=== PATIENT | female | born 1940 | race Caucasian/White ===

== ENCOUNTER 2018-03-07 17:44 | Inpatient (IN) | payer OTHER ==
[2018-03-07 17:50] VITALS: BMI 27.6
--- NOTE | 2018-03-07 17:54 | PDOC ---
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 Patient states both started this morning when she woke up and have continued throughout the day. Emesis is brown. Pain is R sided, sharp, constant and patient does not identify any triggering or relieving factors. No fever/chills. Not tolerating PO intake. Last bowel movement was 4 days previous, patient normally goes every other day. The patient denies chest pain, shortness of breath, cough, sore throat, numbness /tingling. NKDA Surgical: Watchman (January 2018), Appendectomy (childhood), Hysterectomy Social: former 3 ppd smoker, quit 30 years previous; denies other toxic habits Son: Stewart (cell); [phone] (home) As per EMR patient has never been evaluated in our ED on prior occasion. Past History - Past Medical History Allergies/Adverse Reactions: Allergies Allergy/AdvReac Type Severity Reaction Status Date / Time No Known Allergies Allergy Verified 03/07/18 18:16 Home Medications: Ambulatory Orders Amlodipine Besylate [Norvasc -] 10 mg PO BID 03/07/18 Apixaban [Eliquis] 5 mg PO DAILY 03/07/18 Aspirin [ASA -] 81 mg PO DAILY 03/07/18 Atorvastatin Ca [Lipitor] 80 mg PO HS 03/07/18 Digoxin [Lanoxin -] 0.125 mg PO DAILY 03/07/18 Insulin (Levemir) [Levemir Vial] 15 unit SQ DAILY 03/07/18 Metformin HCl [Glucophage] 1,000 mg PO BID 03/07/18 Pantoprazole Sodium [Protonix] 40 mg PO DAILY 03/07/18 Anemia: Yes Cardiac Disorders: Yes (AFIB) CVA: Yes COPD: No Diabetes: Yes HTN: Yes Hypercholesterolemia: Yes - Surgical History Cardiac Surgery: Yes (WATCHMEN DEVICE) - Suicide/Smoking/Psychosocial Hx Smoking History: Former smoker Have you smoked in the past 12 months: No If you are a former smoker, when did you quit?: 26YRS Information on smoking cessation initiated: No Hx Alcohol Use: No Drug/Substance Use Hx: No Review of Systems - Review of Systems Constitutional: No: Chills, Fever HEENTM: No: Recent change in vision Respiratory: No: Cough, Shortness of Breath Cardiac (ROS): No: Chest Pain, Lightheadedness, Palpitations, Syncope ABD/GI: Yes: Constipated, Vomiting, Abdominal cramping. No: Diarrhea : No: Burning, Dysuria *Physical Exam - Vital Signs Last Vital Signs Temp Pulse Resp BP Pulse Ox 0/0 L 03/07/18 17:45 - Physical Exam General Appearance: Yes: Nourished, Thin HEENT: positive: Normal Voice, Hearing Grossly Normal Neck: positive: Trachea midline, Supple Respiratory/Chest: positive: Lungs Clear, Normal Breath Sounds Cardiovascular: positive: S1, S2, Irregularly Irregular Vascular Pulses: Dorsalis-Pedis (R): 2+, Doralis-Pedis (L): 2+ Gastrointestinal/Abdominal: positive: Normal Bowel Sounds, Soft, Guarding. negative: Hernia, Mass Musculoskeletal: positive: CVA Tenderness (R). negative: CVA Tenderness (L) Extremity: positive: Normal Capillary Refill, Normal Inspection Integumentary: positive: Normal Color, Dry, Warm Moderate Sedation - Procedure Monitoring Vital Signs: Procedure Monitoring Vital Signs Temperature Pulse Rate Respiratory Rate Blood Pressure 0/0 L 03/07/18 17:45 O2 Sat by Pulse Oximetry (%) ED Treatment Course - LABORATORY CBC & Chemistry Diagram: 03/07/18 18:38 03/07/18 18:38 Medical Decision Making - Medical Decision Making 03/07/18 18:44 77 year old non-toxic appearing female presents with abdominal pain, vomiting. VS significant for tachycardia (HR 131), R sided CVA tenderness, equivocal Capellan's sign w/peritoneal (guarding) on PE. Frontal diagnosis: gastroenteritis , cholecystitis, bilary colic, colitis, also consider abdominal pain as anginal equivalent though less likely. Will obtain bedside U/S, belly labs. IV Tylenol and hydration. ekg monitor. Reassess. 03/07/18 18:48 EKG shows AFib with RVR. Patient did not take her Digoxin today. Will give home dose Digoxin and repeat EKG 03/07/18 18:48 Bedside U/S shows cholelithiasis, shadowing. Formal U/S pending. 03/07/18 19:16 Leukocytosis (16.8) - will start Zosyn Hb 9 - patient states she is taking Fe pills. Patient counseled on plan of care. Patient signed out to Dr. Ingram. *DC/Admit/Observation/Transfer Diagnosis at time of Disposition: Abdominal pain - Discharge Dispostion Condition at time of disposition: Stable - Referrals - Patient Instructions - Post Discharge Activity
--- NOTE | 2018-03-07 17:55 | PDOC ---
Attending Attestation - Resident Resident Name: Davina Ochoa - ED Attending Attestation I have performed the following: I have examined & evaluated the patient, The case was reviewed & discussed with the resident, I agree w/resident's findings & plan, Exceptions are as noted
[2018-03-07] MEDS ORDERED: DIGOXIN 0.125 MG TABLET (FP) PO ONE (18:21)
[2018-03-07] MEDS ORDERED: SODIUM CHLORIDE 0.9% 500 ML INFUS.BAG IV ONE (18:23)
[2018-03-07] MEDS ORDERED: ONDANSETRON 4 MG/2 ML VIAL IVPUSH ONE (18:24)
[2018-03-07] MEDS ORDERED: ACETAMINOPHEN 1000 MG/100 ML VIAL (NON FORMULARY) IVPB ONE (18:24)
[2018-03-07] MEDS ORDERED: ONDANSETRON 4 MG/2 ML VIAL ONE (18:39)
[2018-03-07] MEDS ORDERED: ACETAMINOPHEN INJECTION 100 ML IVPB ONE (18:39)
[2018-03-07 18:52] LABS: HEMATOCRIT 32.1 % (32.4-45.2); HEMOGLOBIN 9.9 GM/dl (10.7-15.3); MCH 22.5 pg (25.7-33.7); MCHC 30.7 g/dl (32.0-36.0); MEAN CELL VOLUME 73.3 fl (80-96); MEAN PLT VOLUME 8.7 fl (7.5-11.1); PLATELET COUNT 478 K/MM3 (134-434); RBC 4.38 M/mm3 (3.60-5.2); RDW 18.7 % (11.6-15.6); WHITE BLOOD COUNT 16.8 K/mm3 (4.0-10.8)
[2018-03-07 19:08] LABS: ALBUMIN 3.6 g/dl (3.5-5.0); ALK PHOS 82 U/L (32-92); ANION GAP 11 MMOL/L (8-16); BILIRUBIN,TOTAL 0.5 mg/dl (0.2-1.0); BLOOD UREA NITROGEN 21 mg/dl (7-18); CALCIUM 9.2 mg/dl (8.4-10.2); CHLORIDE 99 mmol/L (98-107); CO2 24 mmol/L (22-28); CREATININE 1.3 mg/dl (0.6-1.3); GLUCOSE,RANDOM 248 mg/dl (74-106); MAGNESIUM 1.6 mg/dL (1.8-2.4); POTASSIUM 4.3 mmol/L (3.5-5.1); SGOT/AST 16 U/L (10-42); SGPT/ALT 9 U/L (10-40); SODIUM 134 mmol/L (136-145); TOT PROT 7.5 g/dl (6.4-8.3)
[2018-03-07] MEDS ORDERED: PIPERACILLIN/TAZOB 4.5 GM 4.5 GM in DEXTROSE 5%-WATER 100 ML IVPB ONE (19:14)
[2018-03-07] MEDS ORDERED: DIGOXIN 0.125 MG TABLET (FP) ONE (19:21)
[2018-03-07] MEDS ORDERED: PIPERACILLIN/TAZOBACTAM 4.5 GM VIAL IVPB ONE (19:21)
[2018-03-07 19:22] LABS: ANISOCYTOSIS 2+
[2018-03-07 19:38] LABS: LIPASE 153 U/L (73-393)
--- NOTE | 2018-03-07 19:52 | PDOC ---
*Physical Exam - Vital Signs Last Vital Signs Temp Pulse Resp BP Pulse Ox 98.1 F 126 H 17 172/89 H 97 03/07/18 17:45 03/07/18 19:34 03/07/18 19:34 03/07/18 19:34 03/07/18 19:34 ED Treatment Course - LABORATORY CBC & Chemistry Diagram: 03/07/18 18:38 03/07/18 18:38 - ADDITIONAL ORDERS Additional order review: Laboratory Results 03/07/18 03/07/18 03/07/18 18:38 18:38 18:25 Sodium 134 L Potassium 4.3 Chloride 99 Carbon Dioxide 24 Anion Gap 11 BUN 21 H Creatinine 1.3 Creat Clearance w eGFR 39.72 Random Glucose 248 H Lactic Acid 1.4 Calcium 9.2 Magnesium 1.6 L Total Bilirubin 0.5 AST 16 ALT 9 L Alkaline Phosphatase 82 Creatine Kinase 50 Troponin I Total Protein 7.5 Albumin 3.6 Lipase 153 03/07/18 18:25 Sodium Potassium Chloride Carbon Dioxide Anion Gap BUN Creatinine Creat Clearance w eGFR Random Glucose Lactic Acid Calcium Magnesium Total Bilirubin AST ALT Alkaline Phosphatase Creatine Kinase Troponin I < 0.03 Total Protein Albumin Lipase 03/07/18 18:38 RBC 4.38 MCV 73.3 L MCHC 30.7 L RDW 18.7 H MPV 8.7 Neutrophils % No Result Required. Lymphocytes % No Result Required. - Medications Given in the ED: ED Medications Discontinued Medications Generic Name Dose Route Start Last Admin Trade Name Freq PRN Reason Stop Dose Admin Acetaminophen 1,000 mg 03/07/18 18:24 03/07/18 18:44 Ofirmev Injection - IVPB 03/07/18 18:25 1,000 mg ONCE ONE Administration Digoxin 0.125 mg 03/07/18 18:21 03/07/18 19:20 Lanoxin - PO 03/07/18 18:22 0.125 mg ONCE ONE Administration Piperacillin Sod/Tazobactam 100 mls @ 200 mls/hr 03/07/18 19:14 03/07/18 19: 30 Sod 4.5 gm/ Dextrose IVPB 03/07/18 19:43 200 mls/hr ONCE ONE Administration Protocol Ondansetron HCl 4 mg 03/07/18 18:24 03/07/18 18:44 Zofran Injection IVPUSH 01/14/19 18:25 4 mg ONCE ONE Administration Sodium Chloride 1,000 ml 03/07/18 18:23 03/07/18 18:44 Normal Saline - IV 03/07/18 18:24 1,000 ml ONCE ONE Administration Progress Note - Progress Note Progress Note: Care of this patient was transferred to vt from Dr. Sales at 1900 hrs.. Patient came in complaining of right upper quadrant pain with bilious vomiting. Patient has an elevated white count of 16.9 with a left shift Patient's chemistries are still pending However Dr. Suh did a bedside ultrasound and didn't see a large stone in the neck of the gallbladder. business systems technician has been called to do a formal ultrasound Patient receiving Zosyn. Patient will require an inpatient admission 23:00 Patient's CAT scan showed some hydroureter but no hydro-nephrosis or obstructive uropathy. It also showed some gallstones but no evidence of acute cholecystitis. Discussed admission with Dr. Nunez was accepted patient for admission *DC/Admit/Observation/Transfer Diagnosis at time of Disposition: Hydroureter Abdominal pain Qualifiers: Abdominal location: right upper quadrant Qualified Code(s): R10.11 - Right upper quadrant pain Cholelithiasis Qualifiers: Cholelithiasis location: gallbladder Cholecystitis presence: without cholecystitis Biliary obstruction: without biliary obstruction Qualified Code(s) : K80.20 - Calculus of gallbladder without cholecystitis without obstruction Leukocytosis Qualifiers: Leukocytosis type: unspecified Qualified Code(s): D72.829 - Elevated white blood cell count, unspecified - Discharge Dispostion Condition at time of disposition: Stable Decision to Admit order: Yes - Referrals - Patient Instructions - Post Discharge Activity
[2018-03-07 20:10] LABS: URINE APPEARANCE Clear; URINE BILIRUBIN Negative (NEGATIVE); URINE COLOR Yellow; URINE GLUCOSE (UA) Trace (NEGATIVE); URINE KETONE Trace (NEGATIVE); URINE LEUK ESTERASE Negative (NEGATIVE); URINE NITRITE Negative (NEGATIVE); URINE PROTEIN 2+ (NEGATIVE); URINE UROBILINOGEN 0.2 (0.2-1.0)
[2018-03-07 20:19] LABS: INR 1.38 (0.82-1.09); PROTHROMBIN TIME (PATIENT) 15.4 SEC (10.2-13.0)
[2018-03-07 20:21] LABS: URINE RBC 20-40 /hpf (0-3)
[2018-03-07 20:22] LABS: EPI CELLS 1+ /HPF; URINE BACTERIA 1+ /hpf (NEGATIVE)
--- NOTE | 2018-03-07 23:39 | HP ---
CHIEF COMPLAINT: right upper quadrant pain PCP: HISTORY OF PRESENT ILLNESS: 77 year old woman c/o right upper quadrant pain, dull, which radiated to her right back, which started on 03/06 in the morning, started suddenly, associated with nausea and several episodes of brown emesis. Pain was worsened with eating and she did not have much of an appetite. Patient denied any fevers, chills, dysuria, shortness of breath or chest pain. She feels much better now than this morning. 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), NIDDM PAST SURGICAL HISTORY: Watchman (January 2018), Appendectomy (childhood), Hysterectomy Social History: Smoking: former 3 ppd smoker, quit 25 Alcohol: no Drugs: no Family History: father with DM Allergies No Known Allergies Allergy (Verified 03/07/18 18:16) HOME MEDICATIONS: Home Medications Medication Instructions Recorded Amlodipine Besylate [Norvasc -] 10 mg PO BID 03/07/18 Apixaban [Eliquis] 5 mg PO DAILY 03/07/18 Aspirin [ASA -] 81 mg PO DAILY 03/07/18 Atorvastatin Ca [Lipitor] 80 mg PO HS 03/07/18 Digoxin [Lanoxin -] 0.125 mg PO DAILY 03/07/18 Insulin (Levemir) [Levemir Vial] 15 unit SQ DAILY 03/07/18 Metformin HCl [Glucophage] 1,000 mg PO BID 03/07/18 Pantoprazole Sodium [Protonix] 40 mg PO DAILY 03/07/18 REVIEW OF SYSTEMS CONSTITUTIONAL: Absent: fever, chills, diaphoresis, generalized weakness, weight change present- malaise, loss of appetite, HEENT: Absent: rhinorrhea, nasal congestion, throat pain, throat swelling, difficulty swallowing, mouth swelling, ear pain, eye pain, visual changes CARDIOVASCULAR: Absent: chest pain, syncope, palpitations, irregular heart rate, lightheadedness , peripheral edema RESPIRATORY: Absent: cough, shortness of breath, dyspnea with exertion, orthopnea, wheezing, stridor, hemoptysis GASTROINTESTINAL: Absent: abdominal distension, diarrhea, , melena, hematochezia present- abdominal pain, nausea, vomiting, constipation GENITOURINARY: Absent: dysuria, frequency, urgency, hesitancy, hematuria, flank pain, genital pain MUSCULOSKELETAL: Absent: myalgia, arthralgia, joint swelling, back pain, neck pain SKIN: Absent: rash, itching, pallor HEMATOLOGIC/IMMUNOLOGIC: Absent: easy bleeding, easy bruising, lymphadenopathy, frequent infections ENDOCRINE: Absent: unexplained weight gain, unexplained weight loss, heat intolerance, cold intolerance NEUROLOGIC: Absent: headache, focal weakness or paresthesias, dizziness, unsteady gait, seizure, mental status changes, bladder or bowel incontinence PSYCHIATRIC: Absent: anxiety, depression, suicidal or homicidal ideation, hallucinations. PHYSICAL EXAMINATION Vital Signs - 24 hr 03/07/18 03/07/18 03/07/18 17:45 18:48 19:34 Temperature 98.1 F Pulse Rate 131 H Pulse Rate [ 136 H 126 H Apical] Respiratory 18 20 17 Rate Blood Pressure 150/95 Blood Pressure 172/89 H 169/82 [Right Arm] O2 Sat by Pulse 100 93 L 97 Oximetry (%) 03/07/18 03/07/18 03/07/18 20:15 20:30 22:30 Temperature 98.2 F Pulse Rate Pulse Rate [ 113 H 106 H 90 Apical] Respiratory 17 16 16 Rate Blood Pressure Blood Pressure 149/86 142/76 146/81 [Right Arm] O2 Sat by Pulse 96 98 95 Oximetry (%) GENERAL: Awake, alert, and fully oriented, in no acute distress. HEAD: Normal with no signs of trauma. EYES: Pupils equal, round and reactive to light, extraocular movements intact, sclera anicteric, conjunctiva clear. No lid lag. EARS, NOSE, THROAT: Ears normal, nares patent, oropharynx clear without exudates. Moist mucous membranes. NECK: Normal range of motion, supple without lymphadenopathy, JVD, or masses. LUNGS: Breath sounds equal, clear to auscultation bilaterally. No wheezes, and no crackles. No accessory muscle use. HEART: irregularly irregular HR, no murmurs ABDOMEN: BS+. right upper quadrant tenderness MUSCULOSKELETAL: Normal range of motion at all joints. No bony deformities or tenderness. No CVA tenderness. UPPER EXTREMITIES: 2+ pulses, warm, well-perfused. No cyanosis. No clubbing. No peripheral edema. LOWER EXTREMITIES: 2+ pulses, warm, well-perfused. No calf tenderness. No peripheral edema. NEUROLOGICAL: Cranial nerves II-XII intact. Normal speech. Normal gait. PSYCHIATRIC: Cooperative. Good eye contact. Appropriate mood and affect. SKIN: Warm, dry, normal turgor, no rashes or lesions noted, normal capillary refill. Laboratory Results - last 24 hr 03/07/18 03/07/18 03/07/18 18:25 18:25 18:27 WBC RBC Hgb Hct MCV MCH MCHC RDW Plt Count MPV Absolute Neuts (auto) Neutrophils % Neutrophils % (Manual) Lymphocytes % Lymphocytes % (Manual) Monocytes % (Manual) Eosinophils % (Manual) Hypochromia Anisocytosis Microcytosis PT with INR 15.4 H INR 1.38 H Sodium Potassium Chloride Carbon Dioxide Anion Gap BUN Creatinine Creat Clearance w eGFR Random Glucose Lactic Acid Calcium Magnesium Total Bilirubin AST ALT Alkaline Phosphatase Creatine Kinase 50 Troponin I < 0.03 Total Protein Albumin Lipase Urine Color Urine Appearance Urine pH Ur Specific [place] Urine Protein Urine Glucose (UA) Urine Ketones Urine Blood Urine Nitrite Urine Bilirubin Urine Urobilinogen Ur Leukocyte Esterase Urine RBC Urine WBC Ur Epithelial Cells Urine Bacteria 03/07/18 03/07/18 03/07/18 18:38 18:38 18:38 WBC 16.8 H RBC 4.38 Hgb 9.9 L Hct 32.1 L MCV 73.3 L MCH 22.5 L MCHC 30.7 L RDW 18.7 H Plt Count 478 H MPV 8.7 Absolute Neuts (auto) 15.7 Neutrophils % No Result Required. Neutrophils % (Manual) 92.0 H* Lymphocytes % No Result Required. Lymphocytes % (Manual) 4.0 L Monocytes % (Manual) 3 L Eosinophils % (Manual) 1.0 Hypochromia 2+ Anisocytosis 2+ Microcytosis 1+ PT with INR INR Sodium 134 L Potassium 4.3 Chloride 99 Carbon Dioxide 24 Anion Gap 11 BUN 21 H Creatinine 1.3 Creat Clearance w eGFR 39.72 Random Glucose 248 H Lactic Acid 1.4 Calcium 9.2 Magnesium 1.6 L Total Bilirubin 0.5 AST 16 ALT 9 L Alkaline Phosphatase 82 Creatine Kinase Troponin I Total Protein 7.5 Albumin 3.6 Lipase 153 Urine Color Urine Appearance Urine pH Ur Specific [place] Urine Protein Urine Glucose (UA) Urine Ketones Urine Blood Urine Nitrite Urine Bilirubin Urine Urobilinogen Ur Leukocyte Esterase Urine RBC Urine WBC Ur Epithelial Cells Urine Bacteria 03/07/18 19:50 WBC RBC Hgb Hct MCV MCH MCHC RDW Plt Count MPV Absolute Neuts (auto) Neutrophils % Neutrophils % (Manual) Lymphocytes % Lymphocytes % (Manual) Monocytes % (Manual) Eosinophils % (Manual) Hypochromia Anisocytosis Microcytosis PT with INR INR Sodium Potassium Chloride Carbon Dioxide Anion Gap BUN Creatinine Creat Clearance w eGFR Random Glucose Lactic Acid Calcium Magnesium Total Bilirubin AST ALT Alkaline Phosphatase Creatine Kinase Troponin I Total Protein Albumin Lipase Urine Color Yellow Urine Appearance Clear Urine pH 5.0 Ur Specific [place] 1.025 Urine Protein 2+ H Urine Glucose (UA) Trace Urine Ketones Trace Urine Blood 3+ H Urine Nitrite Negative Urine Bilirubin Negative Urine Urobilinogen 0.2 Ur Leukocyte Esterase Negative Urine RBC 20-40 Urine WBC 2-5 Ur Epithelial Cells 1+ Urine Bacteria 1+ imaging reviewed ASSESSMENT/PLAN: #Sepsis with leukocytosis with neutrophil predominance, tachycardia likely from hepatobiliary source- cholecystitis? choledocholiathiasis? Differential diagnosis also includes right sided pyelonephritis complicated by nephrolithiasis in, right sided hydroureternephrosis seen on imaging, possible right kidney stone obstruction. -admit to med/surg -IV fluid hydration -c/w zosyn -consult surgery, , GI, ID -zofran prn for nausea or vomiting -morphine prn if pain -ordered MRCP -esr, crp -blood cultures, urine cultures -ppi #Afib -c/w home dose digoxin -send dig level in am -pt took home dose eliquis around [place] so hold off heparin drip for now #DM -insulin sliding scale #DLP -on lipitor DVT ppx - on apixaban -also SCDs Visit type - Emergency Visit Emergency Visit: Yes ED Registration Date: 03/07/18 Care time: The patient presented to the Emergency Department on the above date and was hospitalized for further evaluation of their emergent condition. - New Patient This patient is new to me today: Yes Date on this admission: 03/08/18 - Critical Care Critical Care patient: No
[2018-03-07] MEDS ORDERED: HEPARIN INFUSION - 25,000 UNITS/500 ML INFUS.BAG IVPB SCH (23:45)
[2018-03-07] MEDS ORDERED: HEPARIN NA (PORCINE) 5,000 UNITS/ML 1ML VIAL IVPUSH PRN ×2 (23:49)
[2018-03-07] MEDS ORDERED: ONDANSETRON 4 MG/2 ML VIAL IVPB PRN (23:50)
[2018-03-08] MEDS ORDERED: morphine CARPU-JECT 2 MG/1 ML DISP.SYRIN IVPUSH PRN (00:49)
[2018-03-08] MEDS ORDERED: PIPERACILLIN/TAZOBACTAM 2.25 GM VIAL IVPB ONE (00:52)
[2018-03-08] MEDS ORDERED: DEXTROSE 5%-WATER - 50 ML IVPB ONE (00:53)
[2018-03-08] MEDS ORDERED: PIPERACILLIN/TAZOB 2.25 GM 2.25 GM in DEXTROSE 5%-WATER - 50 ML IVPB ONE (01:00)
[2018-03-08] MEDS: SODIUM CHLORIDE 1,000 ML IV SCH ×2 (01:02→23:45)
[2018-03-08] MEDS: INSULIN SLIDING SCALE (NOVOLOG) 1 VIAL SQ SCH ×4 (06:06→21:35)
[2018-03-08] MEDS ORDERED: INSULIN SLIDING SCALE (NOVOLOG) 1 VIAL SQ SCH (07:00)
[2018-03-08 07:53] LABS: HEMATOCRIT 29.4 % (32.4-45.2); HEMOGLOBIN 8.9 GM/dl (10.7-15.3); MCH 22.4 pg (25.7-33.7); MCHC 30.4 g/dl (32.0-36.0); MEAN CELL VOLUME 73.5 fl (80-96); MEAN PLT VOLUME 8.6 fl (7.5-11.1); PLATELET COUNT 405 K/MM3 (134-434); RBC 3.99 M/mm3 (3.60-5.2); RDW 19.4 % (11.6-15.6); WHITE BLOOD COUNT 12.6 K/mm3 (4.0-10.8)
[2018-03-08 08:11] LABS: ANION GAP 9 MMOL/L (8-16); BLOOD UREA NITROGEN 19 mg/dl (7-18); CHLORIDE 104 mmol/L (98-107); CO2 28 mmol/L (22-28); CREATININE 1.2 mg/dl (0.6-1.3); GLUCOSE,RANDOM 130 mg/dl (74-106); POTASSIUM 4.3 mmol/L (3.5-5.1); SODIUM 141 mmol/L (136-145)
[2018-03-08 08:15] LABS: ALBUMIN 3.2 g/dl (3.5-5.0); BILIRUBIN,TOTAL 0.5 mg/dl (0.2-1.0); TOT PROT 6.6 g/dl (6.4-8.3)
[2018-03-08 08:18] LABS: BILIRUBIN,DIRECT 0.1 mg/dL (0.0-0.3)
[2018-03-08] MEDS ORDERED: PIPERACILLIN/TAZOB 3.375 GM 3.375 GM in SODIUM CHLORIDE 50 ML IVPB SCH (10:00)
[2018-03-08] MEDS: PANTOPRAZOLE 40 MG TABLET (FP) PO SCH (10:01)
[2018-03-08] MEDS: DIGOXIN 0.125 MG TABLET (FP) PO SCH (10:01)
[2018-03-08] MEDS: amLODIPine BESYLATE 10 MG TABLET (FP) PO SCH ×2 (10:01→21:31)
[2018-03-08] MEDS: ASPIRIN 81 MG CHEWABLE TABLETS PO SCH (10:01)
[2018-03-08] MEDS: INSULIN (LEVEMIR) 100 UNITS/ML UNITS SQ SCH (10:02)
[2018-03-08] MEDS: PIPERACILLIN/TAZOB 3.375 GM 3.375 GM in SODIUM CHLORIDE 50 ML IVPB SCH ×2 (10:25→17:14)
--- NOTE | 2018-03-08 11:29 | CONSULT ---
Consult Consult Specialty:: General Surgery Reason for Consultation:: cholelithiasis - History of Present Illness Chief Complaint: right flank pain History of Present Illness: 77 yo female with a PMH Atrial Fibrillation (s/p Watchman 3 weeks ago), CVA ( August 2017 - with residual L sided weakness), NIDDM presents to the emergency department with 1 day h/o abdominal pain and vomiting. Patient states both started this morning when she woke up and have continued throughout the day. Emesis is brown. Pain is R sided, sharp, constant and patient does not identify any triggering or relieving factors. No fever/chills. Not tolerating PO intake. Last bowel movement was 4 days previous, patient normally goes every other day. we were called to assess. - History Source History Provided By: Patient, Medical Record Limitations to Obtaining History: No Limitations - Alcohol/Substance Use Hx Alcohol Use: No - Smoking History Smoking history: Former smoker Have you smoked in the past 12 months: No Aproximately how many cigarettes per day: 40 If you are a former smoker, when did you quit?: 26YRS Home Medications - Allergies Allergies/Adverse Reactions: Allergies Allergy/AdvReac Type Severity Reaction Status Date / Time No Known Allergies Allergy Verified 03/07/18 18:16 - Home Medications Home Medications: Ambulatory Orders Amlodipine Besylate [Norvasc -] 10 mg PO BID 03/07/18 Apixaban [Eliquis] 5 mg PO DAILY 03/07/18 Aspirin [ASA -] 81 mg PO DAILY 03/07/18 Atorvastatin Ca [Lipitor] 80 mg PO HS 03/07/18 Digoxin [Lanoxin -] 0.125 mg PO DAILY 03/07/18 Insulin (Levemir) [Levemir Vial] 15 unit SQ DAILY 03/07/18 Metformin HCl [Glucophage] 1,000 mg PO BID 03/07/18 Metoprolol Succinate 100 mg PO DAILY 03/07/18 Pantoprazole Sodium [Protonix] 40 mg PO DAILY 03/07/18 Review of Systems - Review of Systems Constitutional: reports: Fever. denies: No Symptoms, Chills Eyes: denies: Blind Spots, Recent Change in Vision HENT: denies: Difficult Swallowing, Throat Pain Neck: denies: Pain on Movement, Tenderness Cardiovascular: denies: Chest Pain, Edema, Palpitations Respiratory: denies: Cough, SOB, Wheezing Gastrointestinal: denies: Bloating, Constipation, Diarrhea Genitourinary: reports: Dysuria, Flank Pain (right sided with this episode). denies: Discharge Breasts: reports: No Symptoms Reported. denies: Pain Musculoskeletal: denies: Muscle Pain, Muscle Cramps Integumentary: denies: Lesions, Lump, Rash Neurological: denies: Seizure, Syncope Endocrine: denies: Unexplained Weight Gain, Unexplained Weight Loss Hematology/Lymphatic: denies: Easily Bruised, Excessive Bleeding Psychiatric: denies: Anxiety, Depression Physical Exam Vital Signs: Vital Signs Temperature 98.0 F 03/08/18 06:00 Pulse Rate 68 03/08/18 10:01 Respiratory Rate 20 03/08/18 08:30 Blood Pressure 129/53 L 03/08/18 06:00 O2 Sat by Pulse Oximetry (%) 95 03/08/18 08:30 Constitutional: Yes: Well Nourished, No Distress, Calm Eyes: Yes: Conjunctiva Clear, EOM Intact HENT: Yes: Atraumatic, Normocephalic Neck: Yes: Supple, Trachea Midline Cardiovascular: Yes: Regular Rate and Rhythm, S1, S2 Respiratory: Yes: Regular, CTA Bilaterally Gastrointestinal: Yes: Normal Bowel Sounds, Soft. No: Distention, Tenderness, Tenderness, Epigastrium, Tenderness, Rebound ...Rectal Exam: Yes: Deferred Renal/: Yes: CVA Tenderness - Right, Yip Present. No: CVA Tenderness - Left Breast(s): No: Discharge from Nipple, Mass Musculoskeletal: No: Muscle Pain, Muscle Weakness Extremities: No: Cool, Cyanosis Edema: No Peripheral Pulses WNL: Yes Integumentary: No: Jaundice, Rash Neurological: Yes: Alert, Oriented Psychiatric: Yes: Alert, Oriented Labs: CBC, BMP 03/08/18 07:10 03/08/18 07:10 Imaging - Results Cat Scan: Report Reviewed, Image Reviewed (cholelithiasis without cholecystitis) Ultrasound: Report Reviewed, Image Reviewed (cholelithiasis without cholecystitis) Problem List - Problems (1) Cholelithiasis Assessment/Plan: 77yo female cholelithiasis without evidence of acute cholecystitis, incidental finding. He pain was in the KUB axis. no indication for acute intervention. NPO and IVF hydration adequate analgesia and antiemetic workup urology consult empiric IV antibiotics septic work up Thank you for the opportunity to participate in the care of this patient. Code(s): K80.20 - CALCULUS OF GALLBLADDER W/O CHOLECYSTITIS W/O OBSTRUCTION Qualifiers: Cholelithiasis location: gallbladder Cholecystitis presence: without cholecystitis Biliary obstruction: without biliary obstruction Qualified Code(s): K80.20 - Calculus of gallbladder without cholecystitis without obstruction (2) Abdominal pain Code(s): R10.9 - UNSPECIFIED ABDOMINAL PAIN Qualifiers: Abdominal location: right upper quadrant Qualified Code(s): R10.11 - Right upper quadrant pain (3) Hydroureter Code(s): N13.4 - HYDROURETER (4) Leukocytosis Code(s): D72.829 - ELEVATED WHITE BLOOD CELL COUNT, UNSPECIFIED Qualifiers: Leukocytosis type: unspecified Qualified Code(s): D72.829 - Elevated white blood cell count, unspecified
--- NOTE | 2018-03-08 13:00 | PN ---
Physical Exam: SUBJECTIVE: Patient seen and examined sitting on edge of bed. Right flank pain has completely resolved. No nausea or vomiting. Hungry. OBJECTIVE: Vital Signs Period Temp Pulse Resp BP Sys/Chan Pulse Ox Last 24 Hr 97.8 F-98.2 F 68-136 16-20 129-172/53-95 93-100 GENERAL: The patient is awake, alert, and fully oriented, in no acute distress. LUNGS: Breath sounds equal, clear to auscultation bilaterally, no wheezes, no crackles, no accessory muscle use. HEART: Irregular S1, S2 ABDOMEN: Soft, nontender, nondistended EXTREMITIES: 2+ pulses, warm, well-perfused, no edema. NEUROLOGICAL: Cranial nerves II through XII grossly intact. Normal speech, steady gait observed Laboratory Results - last 24 hr 03/07/18 03/07/18 03/07/18 18:25 18:25 18:27 WBC RBC Hgb Hct MCV MCH MCHC RDW Plt Count MPV Absolute Neuts (auto) Neutrophils % Neutrophils % (Manual) Lymphocytes % Lymphocytes % (Manual) Monocytes % (Manual) Eosinophils % (Manual) Hypochromia Anisocytosis Microcytosis ESR PT with INR 15.4 H INR 1.38 H Sodium Potassium Chloride Carbon Dioxide Anion Gap BUN Creatinine Creat Clearance w eGFR POC Glucometer Random Glucose Lactic Acid Calcium Magnesium Total Bilirubin Direct Bilirubin AST ALT Alkaline Phosphatase Creatine Kinase 50 Troponin I < 0.03 Total Protein Albumin Lipase Urine Color Urine Appearance Urine pH Ur Specific [place] Urine Protein Urine Glucose (UA) Urine Ketones Urine Blood Urine Nitrite Urine Bilirubin Urine Urobilinogen Ur Leukocyte Esterase Urine RBC Urine WBC Ur Epithelial Cells Urine Bacteria Blood Type Antibody Screen 03/07/18 03/07/18 03/07/18 18:38 18:38 18:38 WBC 16.8 H RBC 4.38 Hgb 9.9 L Hct 32.1 L MCV 73.3 L MCH 22.5 L MCHC 30.7 L RDW 18.7 H Plt Count 478 H MPV 8.7 Absolute Neuts (auto) 15.7 Neutrophils % No Result Required. Neutrophils % (Manual) 92.0 H* Lymphocytes % No Result Required. Lymphocytes % (Manual) 4.0 L Monocytes % (Manual) 3 L Eosinophils % (Manual) 1.0 Hypochromia 2+ Anisocytosis 2+ Microcytosis 1+ ESR PT with INR INR Sodium 134 L Potassium 4.3 Chloride 99 Carbon Dioxide 24 Anion Gap 11 BUN 21 H Creatinine 1.3 Creat Clearance w eGFR 39.72 POC Glucometer Random Glucose 248 H Lactic Acid 1.4 Calcium 9.2 Magnesium 1.6 L Total Bilirubin 0.5 Direct Bilirubin AST 16 ALT 9 L Alkaline Phosphatase 82 Creatine Kinase Troponin I Total Protein 7.5 Albumin 3.6 Lipase 153 Urine Color Urine Appearance Urine pH Ur Specific [place] Urine Protein Urine Glucose (UA) Urine Ketones Urine Blood Urine Nitrite Urine Bilirubin Urine Urobilinogen Ur Leukocyte Esterase Urine RBC Urine WBC Ur Epithelial Cells Urine Bacteria Blood Type Antibody Screen 03/07/18 03/08/18 03/08/18 19:50 05:59 06:45 WBC RBC Hgb Hct MCV MCH MCHC RDW Plt Count MPV Absolute Neuts (auto) Neutrophils % Neutrophils % (Manual) Lymphocytes % Lymphocytes % (Manual) Monocytes % (Manual) Eosinophils % (Manual) Hypochromia Anisocytosis Microcytosis ESR PT with INR INR Sodium Potassium Chloride Carbon Dioxide Anion Gap BUN Creatinine Creat Clearance w eGFR POC Glucometer 133 Random Glucose Lactic Acid Calcium Magnesium Total Bilirubin Direct Bilirubin AST ALT Alkaline Phosphatase Creatine Kinase Troponin I Total Protein Albumin Lipase Urine Color Yellow Urine Appearance Clear Urine pH 5.0 Ur Specific [place] 1.025 Urine Protein 2+ H Urine Glucose (UA) Trace Urine Ketones Trace Urine Blood 3+ H Urine Nitrite Negative Urine Bilirubin Negative Urine Urobilinogen 0.2 Ur Leukocyte Esterase Negative Urine RBC 20-40 Urine WBC 2-5 Ur Epithelial Cells 1+ Urine Bacteria 1+ Blood Type A POSITIVE Antibody Screen Negative 03/08/18 03/08/18 03/08/18 06:50 07:10 07:10 WBC 12.6 H RBC 3.99 Hgb 8.9 L Hct 29.4 L MCV 73.5 L MCH 22.4 L MCHC 30.4 L RDW 19.4 H Plt Count 405 MPV 8.6 Absolute Neuts (auto) Neutrophils % Neutrophils % (Manual) Lymphocytes % Lymphocytes % (Manual) Monocytes % (Manual) Eosinophils % (Manual) Hypochromia Anisocytosis Microcytosis ESR PT with INR INR Sodium 141 Potassium 4.3 Chloride 104 Carbon Dioxide 28 Anion Gap 9 BUN 19 H Creatinine 1.2 Creat Clearance w eGFR 43.56 POC Glucometer Random Glucose 130 H D Lactic Acid Calcium 9.0 Magnesium Total Bilirubin Direct Bilirubin AST ALT Alkaline Phosphatase Creatine Kinase Troponin I Total Protein Albumin Lipase Urine Color Urine Appearance Urine pH Ur Specific [place] Urine Protein Urine Glucose (UA) Urine Ketones Urine Blood Urine Nitrite Urine Bilirubin Urine Urobilinogen Ur Leukocyte Esterase Urine RBC Urine WBC Ur Epithelial Cells Urine Bacteria Blood Type A POSITIVE Antibody Screen 03/08/18 03/08/18 07:10 07:35 WBC RBC Hgb Hct MCV MCH MCHC RDW Plt Count MPV Absolute Neuts (auto) Neutrophils % Neutrophils % (Manual) Lymphocytes % Lymphocytes % (Manual) Monocytes % (Manual) Eosinophils % (Manual) Hypochromia Anisocytosis Microcytosis ESR 55 H PT with INR INR Sodium Potassium Chloride Carbon Dioxide Anion Gap BUN Creatinine Creat Clearance w eGFR POC Glucometer Random Glucose Lactic Acid Calcium Magnesium Total Bilirubin 0.5 Direct Bilirubin 0.1 AST 14 ALT 8 L Alkaline Phosphatase 67 D Creatine Kinase Troponin I Total Protein 6.6 Albumin 3.2 L Lipase Urine Color Urine Appearance Urine pH Ur Specific [place] Urine Protein Urine Glucose (UA) Urine Ketones Urine Blood Urine Nitrite Urine Bilirubin Urine Urobilinogen Ur Leukocyte Esterase Urine RBC Urine WBC Ur Epithelial Cells Urine Bacteria Blood Type Antibody Screen Active Medications Generic Name Dose Route Start Last Admin Trade Name Freq PRN Reason Stop Dose Admin Amlodipine Besylate 10 mg 03/08/18 10:00 03/08/18 10:01 Norvasc - PO 10 mg BID OZZY Administration Aspirin 81 mg 03/08/18 10:00 03/08/18 10:01 Asa - PO 81 mg DAILY OZZY Administration Atorvastatin Calcium 80 mg 03/08/18 22:00 Lipitor - PO HS OZZY Digoxin 0.125 mg 03/08/18 10:00 03/08/18 10:01 Lanoxin - PO 0.125 mg DAILY OZZY Administration Heparin Sodium (Porcine) 1,000 unit 03/07/18 23:49 Heparin - IVPUSH PRN PRN Heparin Heparin Sodium (Porcine) 5,000 unit 03/07/18 23:49 Heparin - IVPUSH PRN PRN Heparin Sodium Chloride 1,000 mls @ 75 mls/hr 03/07/18 23:45 03/08/18 01:02 Normal Saline - IV 75 mls/hr ASDIR OZZY Administration Piperacillin Sod/Tazobactam 50 mls @ 100 mls/hr 03/08/18 10:00 03/08/18 10:25 Sod 3.375 gm/ Sodium Chloride IVPB Not Given Q8H-IV [facility] Protocol Insulin Aspart 1 vial 03/08/18 07:00 03/08/18 06:06 Novolog Vial Sliding Scale - SQ Not Given ACHS [facility] Protocol Insulin Detemir 15 units 03/08/18 10:00 03/08/18 10:02 Levemir Vial SQ Not Given DAILY OZZY Metoprolol Succinate 100 mg 03/08/18 10:00 03/08/18 10:01 Toprol Xl - PO 100 mg DAILY [facility] Administration Morphine Sulfate 2 mg 03/08/18 00:49 Morphine Injection - IVPUSH Q6H PRN PAIN LEVEL 6-10 Ondansetron HCl 4 mg 03/07/18 23:50 Zofran Injection IVPB Q6H PRN NAUSEA Pantoprazole Sodium 40 mg 03/08/18 10:00 03/08/18 10:01 Protonix - PO 40 mg DAILY OZZY Administration Imaging 03/07 US abdomen: cholelithiasis without evidence of cholecystitis; no biliary tract dilitation; possible minimal to mild right hydronephrosis and dilitation of right upper ureter 03/07 CTAP: mild right hydronephrosis and mild right hydroureter; calculi layering bladder; small pericardial effusion; cholelithiasis without cholecystitis; no duct dilitation; moderate fecal retention ASSESSMENT/PLAN: 77 year-old female with a PMH significant for HTN, HLD, CVA (08/2017) afib, Type II IDDM, and GERD. Admitted for right-sided abdominal pain and vomiting x 1 day. Cholelithiasis Mild right hydronephrosis Mild right hydroureter --since yesterday, flank pain and nausea have completely resolved; patient noticed a "red stone" in her urine cup yesterday; since then, no symptoms --WBC 16.8k on admission, trending down; afebrile; continue empiric Zosyn; ID consult pending Pericardial effusion --incidental finding on CT imaging; -- patient is s/p Watchman's procedure 01/2018; echo ordered Atrial fibrillation s/p Watchman's procedure --rate is well-controlled, continue Toprol XL, digoxin, amlodipine --patient is on DAILY dosing of apixaban following Watchman's procedure, scheduled for SILVIO in March Hypertension --BP stable Hyperlipidemia --continue Lipitor Type II IDDM --Novolog sliding scale coverage --Levemir 15U qhs GERD --Protonix FEN Fluids: NS@75mL/hr Electrolytes: replete as indicated Nutrition: low sodium, diabetic DVT prophylaxis: on Eliquis once daily Dispo: continues to require inpatient care. Full code. Visit type - Emergency Visit Emergency Visit: Yes ED Registration Date: 03/07/18 Care time: The patient presented to the Emergency Department on the above date and was hospitalized for further evaluation of their emergent condition. - New Patient This patient is new to me today: Yes Date on this admission: 03/09/18 - Critical Care Critical Care patient: No
[2018-03-08] MEDS ORDERED: APIXABAN 5 MG TABLET PO SCH (14:00)
[2018-03-08] MEDS ORDERED: PIPERACILLIN/TAZOBACTAM 3.375 GM VIAL IVPB ONE (17:12)
[2018-03-08] MEDS ORDERED: SODIUM CHLORIDE 50 ML IVPB ONE (17:12)
--- NOTE | 2018-03-08 18:14 | EKG ---
Test Reason : Blood Pressure : / mmHG Vent. Rate : 129 BPM Atrial Rate : 156 BPM P-R Int : 000 ms QRS Dur : 074 ms QT Int : 296 ms P-R-T Axes : 000 033 204 degrees QTc Int : 433 ms ATRIAL FIBRILLATION WITH RAPID VENTRICULAR RESPONSE WITH PREMATURE VENTRICULAR OR ABERRANTLY CONDUCTED COMPLEXES ABNORMAL ECG NO PREVIOUS ECGS AVAILABLE Confirmed by MD DIDIER, GILA ([id number]) on 03/08/2018 6:14:20 PM Referred By: CHELSEA Confirmed By:GILA VELÁSQUEZ MD
--- NOTE | 2018-03-08 18:18 | EKG ---
Test Reason : Blood Pressure : / mmHG Vent. Rate : 097 BPM Atrial Rate : 092 BPM P-R Int : 000 ms QRS Dur : 080 ms QT Int : 326 ms P-R-T Axes : 000 019 246 degrees QTc Int : 414 ms POOR DATA QUALITY, INTERPRETATION MAY BE ADVERSELY AFFECTED ATRIAL FIBRILLATION WITH PREMATURE VENTRICULAR OR ABERRANTLY CONDUCTED COMPLEXES ABNORMAL ECG Confirmed by MD DIDIER, GILA ([id number]) on 03/08/2018 6:18:17 PM Referred By: YAHAIRA Confirmed By:GILA VELÁSQUEZ MD
[2018-03-08] MEDS ORDERED: ATORVASTATIN CA 80 MG TABLET (FP) PO SCH (22:00)
[2018-03-09] MEDS ORDERED: SODIUM CHLORIDE 50 ML IVPB ONE ×2 (01:02→09:56)
[2018-03-09] MEDS ORDERED: PIPERACILLIN/TAZOBACTAM 3.375 GM VIAL IVPB ONE ×2 (01:02→09:56)
[2018-03-09] MEDS: PIPERACILLIN/TAZOB 3.375 GM 3.375 GM in SODIUM CHLORIDE 50 ML IVPB SCH (02:56)
[2018-03-09] MEDS: INSULIN SLIDING SCALE (NOVOLOG) 1 VIAL SQ SCH ×3 (06:56→16:36)
[2018-03-09 08:01] LABS: BASO % 0.4 % (0-2.0); EOS % 2.9 % (0-4.5); HEMATOCRIT 27.9 % (32.4-45.2); HEMOGLOBIN 8.5 GM/dl (10.7-15.3); LYMPH % 16.4 % (8-40); MCH 22.3 pg (25.7-33.7); MCHC 30.4 g/dl (32.0-36.0); MEAN CELL VOLUME 73.4 fl (80-96); MEAN PLT VOLUME 8.8 fl (7.5-11.1); MONO % 7.2 % (3.8-10.2); NEUT % 73.1 % (42.8-82.8); PLATELET COUNT 361 K/MM3 (134-434); RDW 19.2 % (11.6-15.6); WHITE BLOOD COUNT 9.9 K/mm3 (4.0-10.8)
[2018-03-09 08:15] LABS: ALBUMIN 3.1 g/dl (3.5-5.0); ALK PHOS 62 U/L (32-92); ANION GAP 5 MMOL/L (8-16); BILIRUBIN,TOTAL 0.5 mg/dl (0.2-1.0); BLOOD UREA NITROGEN 22 mg/dl (7-18); CALCIUM 8.9 mg/dl (8.4-10.2); CHLORIDE 106 mmol/L (98-107); CO2 28 mmol/L (22-28); CREATININE 1.3 mg/dl (0.6-1.3); GLUCOSE,RANDOM 119 mg/dl (74-106); MAGNESIUM 1.7 mg/dL (1.8-2.4); POTASSIUM 4.5 mmol/L (3.5-5.1); SGOT/AST 13 U/L (10-42); SGPT/ALT 8 U/L (10-40); SODIUM 139 mmol/L (136-145); TOT PROT 6.4 g/dl (6.4-8.3)
--- NOTE | 2018-03-09 09:40 | PN ---
Progress Note (short form) - Note Progress Note: ID CONSULT DICTATED LEUKOCYTOSIS-RESOLVED NEPHROLITHIASIS D/C ANTIBIOTICS OBSERVE OFF UROLOGY FOLLOW UP
[2018-03-09] MEDS: ASPIRIN 81 MG CHEWABLE TABLETS PO SCH (10:05)
[2018-03-09] MEDS: amLODIPine BESYLATE 10 MG TABLET (FP) PO SCH (10:07)
[2018-03-09] MEDS: PANTOPRAZOLE 40 MG TABLET (FP) PO SCH (10:07)
[2018-03-09] MEDS: DIGOXIN 0.125 MG TABLET (FP) PO SCH (10:08)
[2018-03-09 10:10] VITALS: PULSE 67
[2018-03-09] MEDS: INSULIN (LEVEMIR) 100 UNITS/ML UNITS SQ SCH (10:11)
--- NOTE | 2018-03-09 11:42 | DS ---
Physical Exam: SUBJECTIVE: Patient seen and examined OBJECTIVE: Vital Signs Period Temp Pulse Resp BP Sys/Chan Pulse Ox Last 24 Hr 98.3 F-98.5 F 66-81 16-19 103-129/42-58 95-97 PHYSICAL EXAM GENERAL: The patient is awake, alert, and fully oriented, in no acute distress. LUNGS: Breath sounds equal, clear to auscultation bilaterally, no wheezes, no crackles, no accessory muscle use. HEART: Irregular S1, S2 ABDOMEN: Soft, nontender, nondistended; no CVA tenderness EXTREMITIES: 2+ pulses, warm, well-perfused, no edema. NEUROLOGICAL: Cranial nerves II through XII grossly intact. Normal speech, steady gait observed LABS Laboratory Results - last 24 hr 03/08/18 03/08/18 03/09/18 07:10 12:33 07:15 WBC RBC Hgb Hct MCV MCH MCHC RDW Plt Count MPV Absolute Neuts (auto) Neutrophils % Lymphocytes % Monocytes % Eosinophils % Basophils % PTT (Actin FS) 32.6 Sodium Potassium Chloride Carbon Dioxide Anion Gap BUN Creatinine Creat Clearance w eGFR POC Glucometer 151 Random Glucose Calcium Magnesium Total Bilirubin AST ALT Alkaline Phosphatase Total Protein Albumin Digoxin 0.91 03/09/18 03/09/18 07:15 07:15 WBC 9.9 RBC 3.80 Hgb 8.5 L Hct 27.9 L MCV 73.4 L MCH 22.3 L MCHC 30.4 L RDW 19.2 H Plt Count 361 MPV 8.8 Absolute Neuts (auto) 7.3 Neutrophils % 73.1 Lymphocytes % 16.4 Monocytes % 7.2 Eosinophils % 2.9 Basophils % 0.4 PTT (Actin FS) Sodium 139 Potassium 4.5 Chloride 106 Carbon Dioxide 28 Anion Gap 5 L BUN 22 H Creatinine 1.3 Creat Clearance w eGFR 39.72 POC Glucometer Random Glucose 119 H Calcium 8.9 Magnesium 1.7 L Total Bilirubin 0.5 AST 13 ALT 8 L Alkaline Phosphatase 62 Total Protein 6.4 Albumin 3.1 L Digoxin HOSPITAL COURSE: Date of Admission:03/07/18 Date of Discharge: 03/09/18 Pre hospital course 7 year old woman c/o right upper quadrant pain, dull, which radiated to her right back, which started on 03/06 in the morning, started suddenly, associated with nausea and several episodes of brown emesis. Pain was worsened with eating and she did not have much of an appetite. Patient denied any fevers, chills, dysuria, shortness of breath or chest pain. She feels much better now than this morning. ED course (1) iv fluid (2) zosyn Subsequent hospital course by problem list Mild right hydronephrosis Mild right hydroureter Renal calculi --Imaging * 03/07 US abdomen: possible minimal to mild right hydronephrosis and dilitation of right upper ureter * 03/07 CTAP: mild right hydronephrosis and mild right hydroureter; calculi layering bladder --flank pain and nausea completely resolved; patient noticed a "red stone" in her strained urine, since then, no symptoms --WBC 16.8k on admission, trending down; afebrile; continue empiric Zosyn; ID consult pending Cholelithiasis Cholecystits ruled out --03/07 US abdomen: cholelithiasis without evidence of cholecystitis; no biliary tract dilitation --03/07 CTAP: cholelithiasis without cholecystitis; no duct dilitation Pericardial effusion --incidental finding on CT imaging; --patient is s/p Watchman's procedure 01/2018 --Echo: small pericardial effusion <1cm --outpatient followup with press worker helper Atrial fibrillation s/p Watchman's procedure --rate is well-controlled, continue Toprol XL, digoxin, amlodipine --patient is on DAILY dosing of apixaban following Watchman's procedure, scheduled for SIL[facility]IO in March Hypertension --BP stable Hyperlipidemia --continue Lipitor Type II IDDM --Novolog sliding scale coverage --Levemir 15U qhs GERD --Protonix Minutes to complete discharge: 35 Discharge Summary Reason For Visit: ABD PAIN, CHOLELITHIASIS, LEUKOCYTOSIS,HYDROURETER Current Active Problems Abdominal pain (Acute) Cholelithiasis (Acute) Hydroureter (Acute) Leukocytosis (Acute) Condition: Stable - Instructions Diet, Activity, Other Instructions: When you go home you should continue to strain your urine and collect any stones passed to bring to your provider. It is important you make an appointment to see Dr. Senior within one week of your discharge. Return to the emergency department for any new or worsening symptoms. Referrals: Sinanaj,Xhevat [Non Staff, Medical] - 1 Week Disposition: HOME - Home Medications Comprehensive Discharge Medication List: Ambulatory Orders Amlodipine Besylate [Norvasc -] 10 mg PO BID 03/07/18 Apixaban [Eliquis] 5 mg PO DAILY 03/07/18 Aspirin [ASA -] 81 mg PO DAILY 03/07/18 Atorvastatin Ca [Lipitor] 80 mg PO HS 03/07/18 Digoxin [Lanoxin -] 0.125 mg PO DAILY 03/07/18 Insulin (Levemir) [Levemir Vial] 15 unit SQ DAILY 03/07/18 Metformin HCl [Glucophage] 1,000 mg PO BID 03/07/18 Metoprolol Succinate 100 mg PO DAILY 03/07/18 Pantoprazole Sodium [Protonix] 40 mg PO DAILY 03/07/18 This patient is new to me today: No Emergency Visit: Yes ED Registration Date: 03/07/18 Care time: The patient presented to the Emergency Department on the above date and was hospitalized for further evaluation of their emergent condition. Critical Care patient: No - Discharge Referral Referred to [facility] Med P.C.: No
[2018-03-09 12:31] VITALS: BP 142/69; TEMP 98.4
--- NOTE | 2018-03-09 12:59 | CONS ---
DATE OF CONSULTATION: DATE OF DICTATION: 03/09/2018 HISTORY OF PRESENT ILLNESS: The patient is a 77-year-old female who is evaluated for possible sepsis. She was admitted to the hospital on March 07, 2018, with a 1-day history of worsening right-sided abdominal pain, nausea, and vomiting. She presented to the emergency room where she was noted to have a white blood cell count of 16,000. A CT scan of the abdomen and pelvis was performed and showed cholelithiasis without evidence of cholecystitis. No dilated ducts. She was noted to have a mild right hydronephrosis. Her hospital course was significant for passage of a kidney stone. At the present time, she denies any abdominal pain. No complaints of epigastric or flank pain. No dysuria or hematuria. No recurrent nausea or vomiting. PAST MEDICAL HISTORY: Positive for atrial fibrillation, CVA, hypertension, [id number] diabetes mellitus, gastroesophageal reflux. PAST SURGICAL HISTORY: Status post Watchman procedure, appendectomy, hysterectomy. ALLERGIES: No known allergies. MEDICATIONS: Include Norvasc, Eliquis, aspirin, Lipitor, Lanoxin, Levemir, Glucophage, Protonix. SOCIAL HISTORY: A former smoker. She lives in the community. No history of alcohol abuse or illicit drug use. SYSTEMS REVIEW: Neurologic: No loss of consciousness, seizure activity, or focal weakness. Cardiac: Negative for chest pain or palpitations. Respiratory: Negative for cough or sputum production. Gastrointestinal: Positive for vomiting, negative for diarrhea. Genitourinary: Negative for urinary tract infection. LABORATORY DATA: White count on admission 16.8, presently 9.9, hematocrit 27.9, platelet count 369. BUN 22, creatinine 1.3. Urinalysis 2-5 white cells, 20-40 red cells. Blood and urine cultures preliminarily negative. Chest x-ray showed cardiomegaly. PHYSICAL EXAMINATION: General: She is awake and alert. She is no acute distress, not acutely toxic-appearing. Vital signs: Temperature 98.5, blood pressure 121/58, pulse 67 and regular, respirations 19 per minute. HEENT: Sclerae anicteric. Heart: Heart sounds S1, S2. Lungs: Clear. Abdomen: Soft. No epigastric or flank tenderness. No suprapubic tenderness. Extremities: Negative for edema. IMPRESSION: 1. Leukocytosis likely secondary to nephrolithiasis, now resolved. 2. Nephrolithiasis. At the present time, patient is afebrile with normal white blood cell count. Would discontinue IV antibiotics and observe off. Urology evaluation for nephrolithiasis. Thank you for the kind referral. HUSSAIN SMALLS M.D. CASE/[id number]
--- NOTE | 2018-03-09 13:41 | ECHO ---
Name: YENNI CARDONA Exam:Adult Echocardiogram Study Date: 03/09/2018 12:15 PM Age: 77 yrs Reason For Study: Pericardial Effusion Height: 64 in Weight: 161 lb BSA: 1.8 m2 MMode/2D Measurements & Calculations IVSd: 0.96 cm Ao root diam: 2.7 cm LVIDd: 5.0 cm LA dimension: 4.7 cm LVIDs: 2.6 cm LVPWd: 1.0 cm EDV(Teich): 117.5 ml LVOT diam: 2.0 cm ESV(Teich): 24.8 ml Doppler Measurements & Calculations MV E max rajni: 131.6 cm/sec MV dec slope: 804.6 cm/sec2 Ao V2 max: 222.0 cm/sec LV V1 max P.1 mmHg Ao max P.7 mmHg LV V1 mean P.0 mmHg Ao V2 mean: 157.5 cm/sec LV V1 max: 87.6 cm/sec Ao mean P.6 mmHg LV V1 mean: 67.2 cm/sec Ao V2 VTI: 41.8 cm LV V1 VTI: 20.0 cm JOHN(I,D): 1.5 cm2 JOHN(V,D): 1.2 cm2 MR max rajni: 260.1 cm/sec SV(LVOT): 61.8 ml MR max P.1 mmHg TR max rajni: 262.0 cm/sec PI end-d rajni: 60.2 cm/sec TR max P.5 mmHg Procedure A two-dimensional transthoracic echocardiogram with color flow and Doppler was performed. Left Ventricle The left ventricular size, thickness and function are normal. The left ventricular ejection fraction is normal. The left ventricular wall motion is normal. Right Ventricle The right ventricle is normal in size and function. Atria The left atrium is moderately dilated. The right atrium is moderately dilated. Mitral Valve There is mild mitral valve thickening. There is no mitral valve stenosis. There is mild mitral regurg itation. Tricuspid Valve There is mild tricuspid valve thickening. There is no tricuspid stenosis. There is severe tricuspid regurgitation. Right ventricular systolic pressure is elevated at 40-50mmHg. Aortic Valve There is mild to moderate aortic valve thickening. There is mild to moderate aortic sclerosis.;. No hemodynamically significant valvular aortic stenosis. No aortic regurgitation is present. Pulmonic Valve The pulmonic valve is not well visualized. There is no pulmonic valvular stenosis. Mild pulmonic valv ular regurgitation. Great Vessels The aortic root is normal size. Pericardium/Pleura Small pericardial effusion (<1cm). Interpretation Summary The left ventricular size, thickness and function are normal The left ventricular ejection fraction is normal. The left ventricular wall motion is normal. The left atrium is moderately dilated. The right atrium is moderately dilated. There is severe tricuspid regurgitation. Right ventricular systolic pressure is elevated at 40-50mmHg. There is mild to moderate aortic sclerosis.; There is mild to moderate aortic valve thickening. There is mild mitral regurgitation. Small pericardial effusion (<1cm) MD Willy Sorenson 03/09/2018 01:40 PM
== END 2018-03-09 19:45 | disposition home or self-care (01) | DRG 445 ==
LOC: FER 17:44 → FM/S 22:50 → UNDOADMIN 23:21 → FM/S 23:21
PROVIDERS: ADMIT Internal Medicine; ATTEND Nurse Practitioner Acute Care
DX: K80.80 Other cholelithiasis without obstruction (principal); N13.30 Unspecified hydronephrosis; N13.4 Hydroureter; I69.354 Hemiplegia and hemiparesis following cerebral infarction affecting left non-dominant side; I31.3 Pericardial effusion (noninflammatory); I48.91 Unspecified atrial fibrillation; N21.0 Calculus in bladder; I10 Essential (primary) hypertension; E11.9 Type 2 diabetes mellitus without complications; E78.5 Hyperlipidemia, unspecified; K21.9 Gastro-esophageal reflux disease without esophagitis; D72.829 Elevated white blood cell count, unspecified; R10.11 Right upper quadrant pain
CPT/HCPCS: 36415; 71045-TC-FY; 74176; 76705-TC; 80048; 80053; 80076; 80162; 81003; 81015; 82550; 82962; 83605; 83690; 83735; 84484; 85025; 85027; 85610; 85651; 85730; 86850; 86900; 86901; 87040; 87086; 93005; 93306-TC; 99285-25; J0131; J7030

== ENCOUNTER 2018-08-03 22:00 | Emergency (ER) | payer OTHER | END 2018-08-04 00:34 | disposition home or self-care (01) | LOC: FER 08-04 00:34 | DX: K59.00 Constipation, unspecified (principal); Z87.891 Personal history of nicotine dependence; I10 Essential (primary) hypertension; E78.00 Pure hypercholesterolemia, unspecified; E11.9 Type 2 diabetes mellitus without complications; Z79.4 Long term (current) use of insulin ==